=== PATIENT | female | born 1965 | race Caucasian/White ===

== ENCOUNTER → 2017-03-17 | Outpatient (CLI) | payer OTHER | END | disposition home or self-care (01) | LOC: LAB.NP 10:17 | PROVIDERS: ATTEND Family Medicine | DX: Z00.00 Encounter for general adult medical examination without abnormal findings (principal) ==

== ENCOUNTER 2017-07-15 05:42 | Day surgery (SDC) | payer OTHER ==
--- NOTE | 2017-07-13 08:28 | SSS ---
CHIEF COMPLAINT: Need for screening colonoscopy. HISTORY OF PRESENT ILLNESS: Ms. Gray is a 51-year-old female who presents for outpatient colonoscopy. This is strictly for screening benefit. She is having no symptoms referable to her bowels, specifically no abdominal pain or changes in her bowel habits. She is contemplating a hysterectomy in the near future. The risks and benefits were discussed and she is agreeable with proceeding. PAST MEDICAL HISTORY: 1. Migraine headaches. 2. Venous stasis with varicose veins. 3. Hyperlipidemia. PAST SURGICAL HISTORY: 1. Hernia repair in the fifth grade (bilateral inguinal). 2. Vein stripping by Dr. Mera. FAMILY HISTORY: Father at 65 from heart disease. He also had history of coronary artery bypass graft and emphysema. Mother at 71 from myocardial infarction and stroke. She also had coronary artery disease and had had a coronary artery bypass graft. She also had hypertension, cerebrovascular disease and type 2 diabetes. She has three sisters. Yudith from lung cancer and had back trouble and also had bipolar. Angela had history of bilateral nee replacements and is still living. Aide after having a stroke at age 46 that affected her memory, but she actually from metastatic cancer, probably cervical cancer. She has one son who is healthy. SOCIAL HISTORY: She is . She has one child. She quit smoking in 1995 having smoked for about 13 years. She drinks alcohol very infrequently. REVIEW OF SYSTEMS: Negative except as in the history of present illness. PHYSICAL EXAMINATION: VITAL SIGNS: Blood pressure 112/80. Height 5'6". Weight 155. Pulse 95. GENERAL: She is awake and alert, in no acute distress. HEENT: Unremarkable. NECK: Supple. LUNGS: Clear. CARDIOVASCULAR: Regular rate and rhythm. ABDOMEN: Soft, nontender. RECTAL: Deferred until time of colonoscopy. EXTREMITIES: Trace to 1+ edema. She does have varicosities on her lower extremities. NEUROLOGIC: Nonfocal. ASSESSMENT: 1. Need for screening colonoscopy. PLAN: Colonoscopy on 07/15/17. #[id number] ISAAC
[2017-07-15] MEDS ORDERED: LACTATED RINGERS 1,000 ML ONE (05:59)
[2017-07-15] MEDS ORDERED: PROPOFOL 200 MG/20 ML VIAL IV ONE (07:00)
[2017-07-15] MEDS ORDERED: LACTATED RINGERS 1,000 ML BAG IV ONE (07:15)
--- NOTE | 2017-07-15 08:38 | OP ---
DATE OF PROCEDURE: 07/15/17 PREOPERATIVE DIAGNOSIS: 1. Screening colonoscopy. POSTOPERATIVE DIAGNOSIS: 1. Approximately 1 cm pedunculated upper rectal polyp, removed by snare at 15 cm. 2. 0.25 by 0.25 cm sessile polyp, removed with multiple bites with the biopsy forceps, also at 15 cm, but at a different location. 3. Rare sigmoid diverticula. 4. Very slightly suboptimal prep in the ascending colon and cecum, but otherwise good prep distally. PROCEDURE: 1. Colonoscopy. SURGEON: Jeffry Orourke MD. ESTIMATED BLOOD LOSS: Less than 1 mL. COMPLICATIONS: No immediate complications. ANESTHESIA: IV Propofol 660 mg administered intravenously using monitored anesthesia care administered by Estevan Tyson CRNA. TECHNIQUE: After informed consent was obtained from the patient, the patient was taken to the Endoscopy Suite and placed in the left lateral decubitus position. Vital signs were monitored throughout the procedure. Supplemental oxygen was administered throughout the procedure. After adequate conscious sedation was obtained, digital rectal examination was performed. A somewhat firm mass extrinsic to the rectal region could be palpated with the tip of my finger. This may be a retroverted uterus or perhaps a large fibroid. There were no other abnormalities note don digital rectal exam. The colonoscope was then advanced into the patient's rectum and up through the sigmoid colon. Some repositioning of the patient had to be done as well as some abdominal pressure to negotiate the sigmoid colon. After this, the scope advanced easily to the cecum. The cecum had a somewhat suboptimal prep with sticky, dark stool throughout most of the cecum and proximal ascending colon. Effort was made to suction out some of this. It was very thin, however, I feel confident that no large polyps were missed. The terminal ileum was intubated approximately 5 to 6 cm and photographed 2 to 3 times. The colonoscope was then withdrawn from the terminal ileum and slowly withdrawn from the colon. No abnormalities were noted until around 15 cm in the upper rectum/distal sigmoid colon where a pedunculated polyp was noted around 1 cm in size and a 0.25 by 0.25 cm sessile polyp was also noted in that area. Both were removed. One sigmoid diverticula was noted that was relatively small in size. Retroflexion was done in the rectum and no significant abnormalities were noted here other than some internal hemorrhoids. The colonoscope was then unretroflexed and air was suctioned out and the colonoscope was removed from the patient. PLAN: Followup in my office in 7 to 10 days to review pathology reports. We will repeat her scope in approximately 3 years because of the polyps found, but this will also be dictated by the pathology report. #[id number] #[id number] ISAAC
[2017-07-15 09:46] VITALS: BP 120/80; TEMP 98; O2SAT 99
== END 2017-07-15 09:10 | disposition home or self-care (01) ==
LOC: AMB 05:42
PROVIDERS: ATTEND Family Medicine
DX: Z12.11 Encounter for screening for malignant neoplasm of colon (principal); D12.7 Benign neoplasm of rectosigmoid junction; K57.30 Diverticulosis of large intestine without perforation or abscess without bleeding; K64.8 Other hemorrhoids; I10 Essential (primary) hypertension; E78.5 Hyperlipidemia, unspecified; K21.9 Gastro-esophageal reflux disease without esophagitis; Z80.0 Family history of malignant neoplasm of digestive organs; Z87.891 Personal history of nicotine dependence; Z88.5 Allergy status to narcotic agent; Z88.2 Allergy status to sulfonamides; Z88.8 Allergy status to other drugs, medicaments and biological substances; Z79.899 Other long term (current) drug therapy
CPT/HCPCS: 00812; 45380; 45385; J3490; J7120

== ENCOUNTER → 2018-02-03 | Outpatient (CLI) | payer OTHER | LOC: GMAL 10:33 | PROVIDERS: ATTEND Family Medicine | DX: D51.3 Other dietary vitamin B12 deficiency anemia (principal); D53.9 Nutritional anemia, unspecified; E55.9 Vitamin D deficiency, unspecified; R53.82 Chronic fatigue, unspecified; E78.4 Other hyperlipidemia ==

== ENCOUNTER → 2018-02-07 | Outpatient (CLI) | payer OTHER | LOC: GMAL 10:35 | PROVIDERS: ATTEND Family Medicine | DX: E34.9 Endocrine disorder, unspecified (principal) ==

== ENCOUNTER → 2018-12-13 | Outpatient (CLI) | payer OTHER | LOC: GMAL 11:05 | PROVIDERS: ATTEND Family Medicine | DX: E34.9 Endocrine disorder, unspecified (principal) ==

== ENCOUNTER → 2019-03-05 | Outpatient (CLI) | payer OTHER | LOC: GMAL 12:18 | PROVIDERS: ATTEND Family Medicine | DX: E34.9 Endocrine disorder, unspecified (principal); E78.00 Pure hypercholesterolemia, unspecified; Z79.899 Other long term (current) drug therapy ==

== ENCOUNTER 2019-07-30 06:58 | Day surgery (SDC) | payer OTHER ==
--- NOTE | 2019-07-29 12:30 | HP ---
DATE OF COLONOSCOPY: 07/30/19 CHIEF COMPLAINT: History of colon polyps. HISTORY OF PRESENT ILLNESS: Ms. Gray is a 53 year-old female who presented to my office for a routine followup. It was noted that she was due for a repeat colonoscopy. She denies any abdominal pain, changes in her weight or blood in her stool. She denies any changes in her bowel habits. Risks and benefits were discussed and she is vert well with proceeding. PAST MEDICAL HISTORY: 1. History of venous stasis with varicose veins. 2. Migraine headaches These are treated with Amerge. 3. Seasonal allergies. 4. Former tobacco use. She smokes 1-1/2 pack daily for 13 years and quit with . 5. History of colon polyps as above. PAST SURGICAL HISTORY: 1. Bilateral inguinal hernia repairs in 5th grade. 2. Vein stripping by Dr. Mera. 3. Total abdominal hysterectomy and bilateral salpingo-oophorectomy with lysis of adhesions which took 50% of the case time by Dr. Dye on 08/29/17. 4. Colonoscopy that showed rare sigmoid diverticula, a 1 cm tubulovillous adenoma removed by snare 15 cm and 0.4 cm tubular adenoma removed at 15 cm in July 2017. CURRENT MEDICATIONS: 1. Amerge p.r.n. 2. Singulair. 3. Spironolactone. 4. Furosemide. 5. Potassium. 6. Estradiol. 7. Vitamin D. 9. Fish oil. 10. Vitamin B12. 11. Vitamin E. 12. Valtrex p.r.n. ALLERGIES: PROPRANOLOL, PRAVASTATIN, HYDROCODONE, SULFA, RELPAX IMITREX, PRISTIQ and LUNESTA. FAMILY HISTORY: Father at age 65 with heart disease. He also had emphysema and a history of bypass surgery. Mother at age 71 secondary to a myocardial infarction and also had a stroke. She also had bypass surgery just like her . She also had hypertension and type 2 diabetes. She has 3 sisters. Sister and had back trouble. She had illicit drug problems, bipolar and from lung cancer. She had bilateral knee replacements and illicit drug issue. She had a ruptured brain aneurysm around the age of 46 and it affected her memory. She subsequently of unknown metastatic cancer of the liver and the lung, possibly from cervical cancer. She has one son. Her grandmother had leukemia. She had a grandfather with diabetes and an aunt with colitis and ultimately from colon cancer. SOCIAL HISTORY: She is . She has one child, he is in college. She has a remote history of smoking, having quit in 1995. She drinks alcohol very infrequently. REVIEW OF SYSTEMS: Negative except as per history of present illness. PHYSICAL EXAMINATION: VITAL SIGNS: Blood pressure 138/80, pulse 70, weight 141 pounds, height 5' 6",. GENERAL: She is awake, alert, and in no acute distress. HEENT: Unremarkable. NECK: Supple. CHEST: Lungs clear. CARDIOVASCULAR: Regular rate and rhythm without\\ appreciable murmurs. ABDOMEN: Soft, non-tender. EXTREMITIES: Without edema. NEUROLOGIC: She is nonfocal. RECTAL: Examination deferred until time of colonoscopy. DIAGNOSIS: History of colon polyps including a tubulovillous adenoma removed in 2018 at 15 cm. PLAN: Colonoscopy on 07/30/2019. #[id number] MTDD
[2019-07-30] MEDS ORDERED: LACTATED RINGERS 1,000 ML ONE (07:07)
[2019-07-30] MEDS ORDERED: KETAMINE HCL 100 MG/ML VIAL ONE (07:32)
[2019-07-30] MEDS ORDERED: ELECTROLYTE-A 1,000 ML IVS ONE (08:24)
[2019-07-30 08:47] VITALS: O2SAT 99
[2019-07-30 09:10] VITALS: BP 117/74; TEMP 98.5
--- NOTE | 2019-07-30 09:14 | OP ---
DATE OF PROCEDURE: 07/30/19 PREOPERATIVE DIAGNOSIS: 1. History of colonic polyps (one of which was a tubulovillous adenoma). 2. Aunt with colon cancer. POSTOPERATIVE DIAGNOSIS: 1. Rare sigmoid diverticula. 2. Aunt with colon cancer. 3. History of colonic polyps. PROCEDURE: 1. Colonoscopy. SURGEON: Jeffry Orourke MD. ESTIMATED BLOOD LOSS: None. COMPLICATIONS: No immediate complications. ANESTHESIA: Propofol 60 mg administered intravenously and 20 mg of ketamine administered intravenously via Barber Nelson CRNA. TECHNIQUE: After informed consent was obtained from the patient, the patient was taken to the Endoscopy Suite and placed in the left lateral decubitus position. Vital signs were monitored throughout the procedure. Supplemental oxygen was administered throughout the procedure. After adequate sedation was obtained, digital rectal examination was performed, which was unremarkable. The colonoscope was then advanced into the patient's rectum and up through the sigmoid, descending, transverse and ascending colon to the level of the cecum. There were a few tight turns in the sigmoid, but these were negotiated without difficulty. The terminal ileum could not be entered. The camera was not working, so we could not take pictures. Overall, the bowel prep was quite good. The colonoscope was then slowly withdrawn taking great care to visualize all day of the colon in 360 degree fashion. I feel very confident that no polyps over 1 cm in size were missed. In the sigmoid, two very small diverticula were noted. On retroflexion, grade 1 to 2 internal hemorrhoids were noted. The colonoscope was then unretroflexed and air was suctioned out of the patient's rectum. The colonoscope was removed from the patient. The patient tolerated the procedure well and was waking up at the conclusion of the procedure. PLAN: 1. Followup in my office for routine visit. 2. Repeat colonoscopy in five years due to her family history and personal history of tubulovillous adenoma on prior scope two years ago. #[id number] MTDD
[2019-07-30] MEDS ORDERED: LIDOCAINE 1% 10 ML VIAL INJ ONE (10:00)
[2019-07-30] MEDS ORDERED: PROPOFOL 200 MG/20 ML VIAL IV ONE (10:00)
== END 2019-07-30 09:10 | disposition home or self-care (01) ==
LOC: AMB 06:58
PROVIDERS: ATTEND Family Medicine
DX: Z12.11 Encounter for screening for malignant neoplasm of colon (principal); K57.30 Diverticulosis of large intestine without perforation or abscess without bleeding; K64.1 Second degree hemorrhoids; G43.909 Migraine, unspecified, not intractable, without status migrainosus; Z86.010 Personal history of colon polyps; Z80.0 Family history of malignant neoplasm of digestive organs; Z87.891 Personal history of nicotine dependence; Z90.710 Acquired absence of both cervix and uterus; Z88.2 Allergy status to sulfonamides; Z88.5 Allergy status to narcotic agent; Z88.8 Allergy status to other drugs, medicaments and biological substances; Z79.899 Other long term (current) drug therapy
CPT/HCPCS: 00812; 45378; J3490; J7120

== ENCOUNTER → 2020-03-24 | Outpatient (CLI) | payer OTHER | LOC: GMAL 10:45 | PROVIDERS: ATTEND Family Medicine | DX: E34.9 Endocrine disorder, unspecified (principal); Z79.899 Other long term (current) drug therapy ==